=== PATIENT | female | born 1970 | race Caucasian/White ===

== ENCOUNTER 2022-08-05 05:45 | Day surgery (SDC) | payer BC ==
[~2022-08-05] VITALS: Ht 154.9 cm; Wt 97.3 kg
[~2022-08-05 05:45] MED LIST: LOSARTAN-HCTZ1 EAC2 PO; METRONIDAZOLE500 MG PO
[2022-08-05] MEDS ORDERED: HYDROCODON-ACE1 EA10 PO (07:30)
--- NOTE | 2022-08-05 07:36 | NUR ---
08/05/22 0736 Siena Velasquez 0730- PT ARRIVES TO PACU AWAKE AND TALKING. PT REPORTS NO PAIN OR NAUSEA. RESP EVEN AND UNLABORED. OXYGEN SAT LOW TO MID 90'S ON RA. ICE PACK APPLIED TO PT'S RIGHT WRIST. DRESSING IN BETWEEN SKIN AND ICE PACK.
--- NOTE | 2022-08-08 07:00 | OR ---
[facility] [address] [place], [place] [address] Signed DATE OF OPERATION: 08/05/2022 SURGEON: Cheikh Dasilva MD PREOPERATIVE DIAGNOSIS: Carpal tunnel syndrome, right. POSTOPERATIVE DIAGNOSIS: Carpal tunnel syndrome, right. PROCEDURE PERFORMED: Carpal tunnel release, right. WELDING EQUIPMENT REPAIRER SUPERVISOR: None. ANESTHESIA: Susy block. TOURNIQUET TIME: 20 minutes. BRIEF HISTORY: Sylvia is a 52-year-old female with pain and numbness in her hand. Risks and benefits of operative treatment were discussed with her after nerve conduction studies revealed significant carpal tunnel. She elected to proceed. DESCRIPTION OF PROCEDURE: Once consent was obtained, she was taken to the operating room. After adequate anesthesia, she was left on the day surgery cart. Hand table was brought in. The arm was prepped and draped in a standard sterile fashion. A 1.5 cm incision was made transversely in the distal wrist crease carried through skin and subcutaneous tissue. The palmaris longus was quite thin, but was retracted and protected. The underlying transverse carpal ligament was identified and dissected free of overlying soft tissue under loupe magnification. It was then released proximally a cm and distally to the distal extent of the ligament. This was palpated carefully using the [place] and found to be completely released. The wound was copiously irrigated with normal saline, closed with 3-0 nylon, injected with 7 mL of 0.25% plain Marcaine. The wound was dressed with bacitracin, Adaptic, 4 x 8s, and gauze. She tolerated the procedure well. All sponge, needle, and instrument counts were correct. Electronically Signed By: CHEIKH DASILVA MD 08/08/22 0700 PATIENT NAME: RAHUL OCHOA OPERATIVE REPORT DATE OF : 68 REPORT #: [id number] PHYSICIAN: CHEIKH DASILVA MD PCP: ELIZA ROJO PAC REPORT IS CONFIDENTIAL AND NOT TO BE RELEASED WITHOUT AUTHORIZATION [address] [address] Signed Cheikh Dasilva MD BA/MODL /[id number] Copies: ~ Electronically Signed By: CHEIKH DASILVA MD 08/08/22 0700 PATIENT NAME: RAHUL OCHOA OPERATIVE REPORT DATE OF : 68 REPORT #: [id number] PHYSICIAN: CHEIKH DASILVA MD PCP: ELIZA ROJO PAC REPORT IS CONFIDENTIAL AND NOT TO BE RELEASED WITHOUT AUTHORIZATION
== END 2022-08-05 08:09 | disposition home or self-care (01) ==
LOC: DS 05:45
PROVIDERS: ATTEND Specialist
PROC: 01N50ZZ Release Median Nerve, Open Approach (ICD-10-PCS; principal; 2022-08-05 07:30)
DX: G56.01 Carpal tunnel syndrome, right upper limb (principal); I10 Essential (primary) hypertension; Z87.891 Personal history of nicotine dependence
CPT/HCPCS: J0690; J2250; J2704; J7121

== ENCOUNTER 2024-10-11 07:30 | Day surgery (SDC) | payer BC ==
[~2024-10-11] VITALS: Ht 154.9 cm; Wt 78.6 kg
[~2024-10-11 07:30] MED LIST changes: +CEFAZOLIN SODIUM 2 GM/20 ML SYR IV SCH; +DEXAMETHASONE SOD PHOS 4 MG/ML VIAL ONE; +FAMOTIDINE 20 MG/ 2 ML VIAL ONE; +HYDROCODON-ACE1 EA10 PO; +IBLOOD GLUCOSE TEST STRIP 1 EA TEST VI PRN; +KETAMINE in NS 50 MG/5 ML SYR ONE; +KETOROLAC TROMETHAMINE 30 MG/ML VIAL ONE; +LACTATED RINGER'S 1,000 ML IV ONE; +LACTATED RINGER'S 1,000 ML IV SCH; +LIDOCAINE HCL 0.5% 50 ML SDV ONE; +LIDOCAINE HCL 1% 5 ML SDV INJ ONE; +METOCLOPRAMIDE HCL 10 MG/2 ML SDV ONE; +MIDAZOLAM HCL 2 MG/2 ML VIAL ONE; +fentaNYL citrate 100 MCG/2 ML VIAL ONE; +ondansetron HCL 4 MG/2 ML VIAL ONE; +propofoL 200 MG/20 ML VIAL ONE
[2024-10-11 07:53] VITALS: BP 154/97
[2024-10-11] MEDS ORDERED: IBLOOD GLUCOSE TEST STRIP 1 EA TEST VI PRN (08:45)
[2024-10-11] MEDS ORDERED: METOCLOPRAMIDE HCL 10 MG/2 ML SDV IV PRN (08:45)
[2024-10-11] MEDS ORDERED: droPERidol 5 MG/2 ML VIAL IV PRN (08:45)
[2024-10-11] MEDS ORDERED: NALOXONE HCL 0.4 MG SYR IV PRN (08:45)
[2024-10-11] MEDS ORDERED: fentaNYL citrate 50 MCG/ML SDV IV PRN (08:45)
[2024-10-11] MEDS ORDERED: HYDROCODONE/ACETA 5/325 TAB PO PRN (08:45)
[2024-10-11] MEDS ORDERED: PROCHLORPERAZINE EDISYLATE 10 MG/2 ML VIAL IV PRN (08:45)
[2024-10-11] MEDS ORDERED: ondansetron HCL 4 MG/2 ML VIAL IV PRN (08:45)
[2024-10-11] MEDS ORDERED: MORPHINE SULFATE 10 MG/ML VIAL IV PRN (08:45)
[2024-10-11] MEDS ORDERED: HYDROCODON-ACE1 EA10 PO (09:39)
--- NOTE | 2024-10-11 10:00 | NUR ---
10/11/24 Leonarda Krishnan 0937- PT ARRIVES TO THE PACU WITH A NATURAL AIRWAY AND 10L OF O2 VIA MASK. BREATHING IS EVEN AND UNLABORED. PT IS OREIENTED TO PACU. PT DENIES PAIN AND NAUSEA. SURGICAL SITE IS CDI. LR INFUSING IN R WRIST. ABDOMEN IS SOFT AND NONDISTENDED. CMS CHECK SHOWED WARM, NUMBNESS, 1-2 SECOND CAPILLARY REFILL. PT IS RESTING WITH EYES CLOSED AND NO APPARENT DISTRESS. ALL MONITORS PUT IN PLACE AND VSS. 0955- PT WAKES TO VERBAL STIMULI. PLAN OF CARE DISCUSSED. PT LIFTING HEAD OFF OF PILLOW AND IN AGREEMENT OF PLAN OF CARE. ALL QUESTIONS AND CONCERNS ANSWERED. VSS.
[2024-10-11 10:01] VITALS: BP 148/91
--- NOTE | 2024-10-11 11:51 | OR ---
[facility] [address] [place], [place] [address] Signed DATE OF OPERATION: 10/11/2024 SURGEON: Cheikh Dasilva MD PREOPERATIVE DIAGNOSIS: Carpal tunnel syndrome, left. POSTOPERATIVE DIAGNOSIS: Carpal tunnel syndrome, left. PROCEDURE PERFORMED: Carpal tunnel release, left. CORK INSULATOR HELPER: None. ANESTHESIA: [place] block. TOURNIQUET TIME: 20 minutes. BRIEF HISTORY: Sylvia is a 54-year-old female with progressive worsening numbness and tingling in her hand. Nerve conduction studies were consistent with significant carpal tunnel. Risks and benefits of operative treatment were discussed with her and she elected to proceed. DESCRIPTION OF PROCEDURE: Once consent was obtained, she was taken to the operating room. After adequate anesthesia, she was placed on the surgery bed with a hand table. The hand was prepped and draped in a standard sterile fashion after the Susy block was established. The carpal tunnel was approached through a 1.5 cm incision in the distal wrist crease. This was carried through skin and subcutaneous tissue. Palmaris longus was identified, retracted, and protected. The transverse carpal ligament was identified and dissected free of overlying soft tissue under loupe magnification. It was then released proximally a centimeter and distally to the distal extent. This was again done under direct visualization. The canal was then palpated using a [place]. The ligament was found to be completely released. There was good return of blood into the . The wound was copiously irrigated with normal saline, closed with 3-0 nylon and injected with 5 mL of 0.25% plain Marcaine. The wound was dressed with bacitracin, Adaptic, Electronically Signed By: CHEIKH DASILVA MD 10/11/24 1151 PATIENT NAME: RAHUL OCHOA OPERATIVE REPORT DATE OF : 68 REPORT #: [id number] PHYSICIAN: CHEIKH DASILVA MD PCP: ELIZA ROJO PAC REPORT IS CONFIDENTIAL AND NOT TO BE RELEASED WITHOUT AUTHORIZATION [facility] [address] [place], [place] [address] Signed 4x8's, and gauze. She tolerated the procedure well. All sponge, needle, and instrument counts were correct. Cheikh Dasilva MD BA/MODL /[id number] Copies: ~ Electronically Signed By: CHEIKH DASILVA MD 10/11/24 1151 PATIENT NAME: RAHUL OCHOA OPERATIVE REPORT DATE OF : 68 REPORT #: [id number] PHYSICIAN: CHEIKH DASILVA MD PCP: ELIZA ROJO PAC REPORT IS CONFIDENTIAL AND NOT TO BE RELEASED WITHOUT AUTHORIZATION
== END 2024-10-11 10:20 | disposition home or self-care (01) ==
LOC: DS 07:30
PROVIDERS: ATTEND Specialist
PROC: 01N50ZZ Release Median Nerve, Open Approach (ICD-10-PCS; principal; 2024-10-11 09:30)
DX: G56.02 Carpal tunnel syndrome, left upper limb (principal); Z79.899 Other long term (current) drug therapy
CPT/HCPCS: 01810; J0690; J1100; J1885; J2250; J2405; J2704; J2765; J3010; J3490; J7121